=== PATIENT | male | born 1955 | race Caucasian/White ===

== ENCOUNTER 2016-11-06 15:12 | Outpatient (CLI) | payer OTHER ==
[2016-11-06 15:47] LABS: eGFR (African) > 60; eGFR (Non-African) > 60
--- NOTE | 2016-11-06 16:29 | Diagnostic Imaging Report ---
[facility] [address] [facility].[address] [address] Report Submission Date: Nov 06, 2016 4:25:42 PM ENGINE TURNER Patient Study Name: MARSHA HUNTER Date: Nov 06, 2016 4:02:56 PM ENGINE TURNER Modality Type: CT\SR Gender: M Description: CT CHEST W/ CONTRAST : 53 Institution: [facility] Physician: SAMRA GANNON CT chest with IV contrast Clinical history: Dyspnea and wheezing for 3 days, history of COPD 89 mL omnipaque 350 Radiation dose DLP 537 No evidence of aortic dissection and there is no significant size visible pulmonary embolus. No visible pericardial or pleural effusion. 3 cm hiatal hernia. Linear atelectasis in the lingular segment of the left upper lobe. No acute infiltrates or pleural effusion. No significant mass lesions. There is slight underlying emphysema. Impression: 3 cm hiatal hernia No pulmonary embolus or aortic dissection . Mild pulmonary emphysema Small linear atelectasis in the lingular segment of the left upper lobe . Electronically signed on Nov 06, 2016 4:25:42 PM ENGINE TURNER by: Jim TRUONG
--- NOTE | 2016-11-06 16:30 | Diagnostic Imaging Report ---
[facility] [address] [facility].[address] [address] Report Submission Date: Nov 06, 2016 3:46:00 PM DIETARY DIRECTOR Patient Study Name: MARSHA HUNTER Date: Nov 06, 2016 3:25:02 PM DIETARY DIRECTOR Modality Type: CR Gender: M Description: CHEST : 53 Institution: [facility] Physician: SAMRA GANNON Chest PA and lateral views Clinical history: Dyspnea and wheezing for 3 days, history of COPD Normal heart shadow and mediastinum. Clear lungs without acute infiltrates or pleural effusion. Normal bony thorax. Impression: No active pulmonary pathology Electronically signed on Nov 06, 2016 3:46:00 PM DIETARY DIRECTOR by: Jim TRUONG
== END 2016-11-06 15:14 ==
LOC: LAB 15:12
PROVIDERS: ATTEND Family Medicine
DX: R06.2 Wheezing (principal); J43.9 Emphysema, unspecified; K44.9 Diaphragmatic hernia without obstruction or gangrene
CPT/HCPCS: 36415; 71020; 71275; 80048; 85379; Q9966

== ENCOUNTER 2016-12-04 10:05 | Emergency (ER) | payer OTHER ==
--- NOTE | 2016-12-04 10:35 | ED Physician Documentation ---
Upper Respiratory Symptoms - HISTORIAN Historian: patient, spouse - HPI Chief Complaint: Cough/ Upper Respiratory Additional Information: flu like sy for one month-has copd- also w/similar- worse this am-more sob cough. denies cp but has tachycardia Duration: intermittent episodes Associated Symptoms: fever, chills, sweating. denies: sore throat, chest pain - ROS CONST/EYES: denies: weakness - PAST HX Lung Disease: asthma (padgets ds djd pneumonia BPH), COPD Surgeries/Procedures: appendectomy Allergies/Adverse Reactions: Allergies Allergy/AdvReac Type Severity Reaction Status Date / Time Sulfa (Sulfonamide AdvReac Unknown Hives Verified 12/04/16 11:00 Antibiotics) - SOCIAL HX Smoking History: quit less than 1 year Alcohol Use: none Drug Use: none - FAMILY HX Family History: no significant history - VITAL SIGNS Vital Signs: Vital Signs Temp Pulse Resp BP Pulse Ox 98.4 F 104 H 28 H 115/78 92 12/04/16 10:30 12/04/16 10:30 12/04/16 10:30 12/04/16 10:30 12/04/16 10:30 - REVIEWED ASSESSMENTS Nursing Assessment Reviewed: Yes Vitals Reviewed: Yes ED Results Lab/Radiology - Lab Results Lab Results: Lab Results 12/04/16 12/04/16 10:35 10:35 WBC 4.90 K/ul K/ul (4.00-12.00) RBC 4.49 M/ul M/ul (3.90-5.20) Hgb 13.6 g/dL g/dL (12.0-18.0) Hct 40.1 % % (37.0-53.0) MCV 89.4 fl fl (80.0-100.0) MCH 30.3 pg pg (28.0-34.0) MCHC 33.9 g/dL g/dL (30.0-36.0) RDW 13.0 % % (11.3-14.3) Plt Count 221 K/mm3 K/mm3 (130-400) Neut % (Auto) 58.4 % % (39.0-79.0) Lymph % (Auto) 25.3 % % (16.0-50.0) [place] % (Auto) 5.5 % % (0.0-11.0) Eos % (Auto) 8.4 % H % (0.0-6.8) Baso % (Auto) 0.4 (0.0-1.5) Neut # 2.8 # k/uL # k/uL (1.4-7.7) Lymph # 1.2 # k/uL # k/uL (0.6-4.0) [place] # 0.3 # k/uL # k/uL (0.0-0.9) Eos # 0.4 # k/uL # k/uL (0.0-0.6) Baso # 0.0 # k/uL # k/uL (0.0-0.5) Reactive Lymphs % 2.0 % % (0.0-5.0) Reactive Lymphs # 0.1 # k/uL # k/uL (0.0-0.8) Sodium 137 mmol/L mmol/L (136-145) Potassium 3.7 mmol/L mmol/L (3.5-5.0) Chloride 103 mmol/L mmol/L (98-110) Carbon Dioxide 30 mmol/L mmol/L (20-32) BUN 11 mg/dL mg/dL (10-26) Creatinine 1.0 mg/dL mg/dL (0.4-1.5) Est GFR ( Amer) > 60 (60 - ) Est GFR (Non-Af Amer) > 60 (60 - ) Glucose 142 mg/dL H mg/dL (70-99) Calcium 9.6 mg/dL mg/dL (8.5-10.5) Total Bilirubin 0.5 mg/dL mg/dL (0.2-1.2) AST 23 U/L U/L (0-41) ALT 24 U/L U/L (0-45) Alkaline Phosphatase 108 U/L U/L (46-116) Total Protein 7.4 g/dL g/dL (6.0-8.5) Albumin 4.2 g/dL g/dL (3.0-5.5) - Radiology Radiology Impressions: cxr = copd no apparent acute infiltrate - Orders Orders: ED Orders Category Date Time Status Place Saline Lock/IV Now Care 12/04/16 10:31 Active CHEST P.A.&LAT 2 VIEWS [RAD] Stat Exams 12/04/16 Ordered CBC/PLATELET/DIFF Routine Lab 12/04/16 10:35 Completed CMP Routine Lab 12/04/16 10:35 Completed Ipratropium/Albuterol Sulfate [Duoneb] Med 12/04/16 10:31 Discontinued 3 ml NEB NOW ONE methylPREDNISolone ACETATE [Depo-Medrol] Med 12/04/16 11:19 Once 80 mg IM NOW ONE Oxygen Daily Oxygen 12/04/16 10:45 Ordered EKG WITH COMPARISON Stat Ther 12/04/16 Ordered Upper Respiratory Symptoms - EXAM General Appearance: moderate distress EENT: eyes nml inspection Neck: normal inspection, supple Respiratory: speaks full sentences, respiratory distress, prolonged expirations , decreased air movement, wheezes, rhonchi. No: no resp. distress, breath sounds nml, respiratory failure, retractions, splinting, accessory muscle use Abdomen: non-tender CVS: reg rate & rhythm, heart sounds normal Skin: color nml, no rash, warm,dry. No: cyanosis, diaphoresis, pallor Extremities: non-tender, normal range of motion, no evidence of injury Neuro/Psych: oriented x3, neuro intact, mood/affect nml Discharge Clincal Impression: Acute exacerbation of COPD with asthma Comments: home meds f/u w/pcp Condition: Fair Disposition: 01 HOME, SELF-CARE Decision to Admit: NO Decision Time: 11:27
[2016-12-04] MEDS: IPRATROPIUM/ALBUTEROL SULFATE 3 ML AMPUL.NEB NEB ONE (10:39)
[2016-12-04 10:41] LABS: BASOPHILS % 0.4 (0.0-1.5); EOSINOPHILS % 8.4 % (0.0-6.8); LYMPHOCYTES # 1.2 # k/uL (0.6-4.0); MEAN CORPUSCULAR HEMOGLOBIN 30.3 pg (28.0-34.0); MONOCYTES # 0.3 # k/uL (0.0-0.9); MONOCYTES % 5.5 % (0.0-11.0); NEUTROPHILS # 2.8 # k/uL (1.4-7.7)
[2016-12-04 10:57] LABS: eGFR (African) > 60; eGFR (Non-African) > 60
--- NOTE | 2016-12-04 11:29 | Diagnostic Imaging Report ---
[facility] [address] [facility].[address] [address] Report Submission Date: Dec 04, 2016 11:15:01 AM ALARM INSTALLATION TECHNICIAN Patient Study Name: MARSHA HUNTER Date: Dec 04, 2016 11:01:25 AM ALARM INSTALLATION TECHNICIAN Modality Type: CR Gender: M Description: CHEST : 53 Institution: [facility] Physician: TUTU Harley DO [employer] Agent to anterior and lateral chest Clinical history: Cough Comparison: November 06, 2016 of the thumb Technique: Pa and lateral standing upright radiographs Findings: The lung mehta are hyperinflated with flattening of the hemidiaphragms. There is no mass infiltrate or pleural effusions. Thoracic spondylosis is present. Impression: Hyperinflation No acute infiltrate Electronically signed on Dec 04, 2016 11:15:01 AM ALARM INSTALLATION TECHNICIAN by: Tashi TRUONG
[2016-12-04] MEDS: methylPREDNISolone ACETATE 80 MG/ML VIAL IM ONE (11:30)
[2016-12-04 11:48] VITALS: BP 128/73
== END 2016-12-04 11:46 | disposition home or self-care (01) ==
LOC: ED 10:05
DX: J44.1 Chronic obstructive pulmonary disease with (acute) exacerbation (principal)
CPT/HCPCS: 71020; 80053; 85025; 93005; J1040; 94640; 96372; 99283; S1016

== ENCOUNTER 2017-04-10 07:34 | Inpatient (IN) | payer OTHER ==
[2017-04-10] MEDS ORDERED: IPRATROPIUM/ALBUTEROL SULFATE 3 ML AMPUL.NEB NEB ONE ×3 (07:42→12:42)
[2017-04-10] MEDS ORDERED: methylPREDNISolone SOD SUCC 125 MG/2 ML VIAL IVP ONE (07:43)
--- NOTE | 2017-04-10 07:49 | ED Physician Documentation ---
Dizziness - HISTORIAN Historian: patient - HPI Chief Complaint: Dyspnea - PAST HX Allergies/Adverse Reactions: Allergies Allergy/AdvReac Type Severity Reaction Status Date / Time Sulfa (Sulfonamide AdvReac Unknown Hives Verified 04/10/17 07:49 Antibiotics) - VITAL SIGNS Vital Signs: Vital Signs Temp Pulse Resp BP Pulse Ox 128/73 12/04/16 11:46 Discharge Referrals: Dora Acosta MD [Primary Care Provider] - 2 Days
--- NOTE | 2017-04-10 08:05 | ED Physician Documentation ---
Dyspnea - HISTORIAN Historian: patient - HPI Stated Complaint: Difficulty Breathing Chief Complaint: Dyspnea Onset: hours (last noc) Duration: continues in ED Initiating Event: denies: out of meds Severity: moderate Exacerbated By: exertion, coughing Associated Symptoms: productive cough (white phlegm). denies: chills, fever, chest pain, chest discomfort, heart racing - ROS CONST: no problems, recent illness GI/: none. denies: vomiting, nausea, diarrhea, black stools - PAST HX Lung Disease: asthma (patient's breathing problems are usually more related to asthma then COPD), COPD Cardiac Disease: none PE Risk Factors: none Surgeries/Procedures: appendectomy, other (arthroscopic surgery knee) Other History: other (allergic rhinnitis, asthma, COPD, migraine, Paget's disease) Immunizations: referred to PCP Allergies/Adverse Reactions: Allergies Allergy/AdvReac Type Severity Reaction Status Date / Time Sulfa (Sulfonamide AdvReac Unknown Hives Verified 04/10/17 07:49 Antibiotics) Home Medications: Ambulatory Orders Medication Instructions Recorded Aspirin [Adult Low Dose Aspirin EC] 81 mg PO DAILY 04/10/17 Cetirizine HCl [Zyrtec] 10 mg PO DAILY 04/10/17 predniSONE [Deltasone] 10 mg PO DAILY 04/10/17 - SOCIAL HX Smoking History: quit less than 1 year (Jul 2016) - FAMILY HX Family History: other (mother with asthma) - VITAL SIGNS Vital Signs: Vital Signs Temp Pulse Resp BP Pulse Ox 98.3 F 105 H 26 H 183/101 94 04/10/17 07:43 04/10/17 07:43 04/10/17 07:43 04/10/17 07:43 04/10/17 07:43 - REVIEWED ASSESSMENTS Nursing Assessment Reviewed: Yes Vitals Reviewed: Yes Progress - Progress Progress: 08:33 Breathing is some better. Not as tight. Still having some wheezing. SAO2 at 96% on 5 liters. 09:11 Still complaining of SOB, talks in short sentences, still wheezing quite-a-bit bilaterally. Will give another HFN treatment. 10:23 Patient is talking in sentences now. Still short of breath but is moving air much better. Have decreased oxygen to 3.5 liters and SAo2 is 94% 11:13 Patient is stable. Oxygen down to 2 liters. Still bilateral wheezing noted. Gets SOB with exertion. 12:47 Patient is resting 93% on 2 liters. Still wheezing all lobes, will give another neb treatment ED Results Lab/Radiology - Radiology Radiology Impressions: Report Submission Date: Apr 10, 2017 8:59:18 AM CDT Patient Study Name: MARSHA HUNTER Date: Apr 10, 2017 7:57:04 AM CDT Modality Type: CR Gender: M Description: CHEST : 53 Institution: [facility] Physician: BABS RICKS - SARAN Portable chest History: Dyspnea and COPD. Findings: The lungs are clear and well expanded. No pleural effusions are observed. Heart size is normal. Osseous structures are unremarkable. A calcified left lung granuloma is noted. Impression: No acute abnormality. - Orders Orders: ED Orders Category Date Time Status Place IV Lock 1T Care 04/10/17 07:44 Active CHEST 1 VIEW [RAD] Routine Exams 04/10/17 Ordered CBC/PLATELET/DIFF Routine Lab 04/10/17 Ordered CMP Routine Lab 04/10/17 Ordered D DIMER Routine Lab 04/10/17 Ordered Ipratropium/Albuterol Sulfate [Duoneb] Med 04/10/17 07:42 Discontinued 3 ml NEB NOW ONE methylPREDNISolone SOD SUCC [Solu-MEDROL] Med 04/10/17 07:43 Discontinued 125 mg IVP NOW ONE Oxygen Daily Oxygen 04/10/17 07:45 Ordered Dyspnea Physical Exam - EXAM General Appearance: alert EENT: pharynx normal, no signs of dehydration. No: pharyngeal erythema Neck: nml inspection Respiratory: speaks full sentences (short), respiratory distress, prolonged expirations, decreased air movement, wheezes (expiratory bilateral). No: retractions, splinting, rales, rhonchi CVS: reg. rate & rhythm, no murmur, no gallop, no friction rub, pulses full, pulses equal Abdomen: non-tender, no organomegaly, no distention, no ascites Skin: color nml, no rash, diaphoresis (mild). No: cyanosis Neuro/Psych: oriented x3, CN's nml as tested, motor nml, mood/affect nml Discharge Clincal Impression: Acute asthma exacerbation Home Medications: Ambulatory Orders Aspirin [Adult Low Dose Aspirin EC] 81 mg PO DAILY 06/13/17 Cetirizine HCl [Zyrtec] 10 mg PO DAILY 04/10/17 predniSONE [Deltasone] 10 mg PO DAILY 04/10/17 Condition: Good Disposition: ADMITTED INPATIENT Decision to Admit: [id number] Date of Decison to Admit: 04/10/17 Decision Time: 12:00
[2017-04-10 08:19] LABS: BASOPHILS % 0.8 (0.0-1.5); EOSINOPHILS % 9.8 % (0.0-6.8); MEAN CORPUSCULAR HEMOGLOBIN 29.5 pg (28.0-34.0); MEAN CORPUSCULAR VOLUME 87.9 fl (80.0-100.0); MONOCYTES % 5.3 % (0.0-11.0); NEUTROPHILS # 3.4 # k/uL (1.4-7.7)
[2017-04-10 08:37] LABS: eGFR (African) > 60; eGFR (Non-African) > 60
--- NOTE | 2017-04-10 14:31 | Diagnostic Imaging Report ---
BABS RICKS [facility] [address] [facility] [address] [address] Report Submission Date: Apr 10, 2017 8:59:18 AM CDT Patient Study Name: MARSHA HUNTER Date: Apr 10, 2017 7:57:04 AM CDT Modality Type: CR Gender: M Description: CHEST : 53 Institution: [facility] Physician: BABS RICKS Portable chest History: Dyspnea and COPD. Findings: The lungs are clear and well expanded. No pleural effusions are observed. Heart size is normal. Osseous structures are unremarkable. A calcified left lung granuloma is noted. Impression: No acute abnormality. Electronically signed on Apr 10, 2017 8:59:18 AM CDT by: Dl TRUONG
[2017-04-10] MEDS: ENOXAPARIN SODIUM 30 MG/0.3 ML DISP.SYRIN SQ SCH (17:03)
[2017-04-10] MEDS: IPRATROPIUM/ALBUTEROL SULFATE 3 ML AMPUL.NEB NEB SCH ×2 (17:52→20:56)
[2017-04-10 19:49] VITALS: BMI 30.5
[2017-04-10] MEDS: DOXYCYCLINE MONOHYDRATE 100 MG CAPSULE PO SCH (20:34)
[2017-04-10] MEDS: methylPREDNISolone SOD SUCC 40 MG/ML VIAL IVP SCH (20:34)
[2017-04-10] MEDS: SALINE FLUSH 10 ML DISP.SYRIN IV SCH (20:56)
[2017-04-10] MEDS ORDERED: methylPREDNISolone SOD SUCC 40 MG/ML VIAL IVP SCH (21:00)
[2017-04-11] MEDS: IPRATROPIUM/ALBUTEROL SULFATE 3 ML AMPUL.NEB NEB SCH ×6 (00:59→20:45)
[2017-04-11] MEDS: methylPREDNISolone SOD SUCC 40 MG/ML VIAL IVP SCH ×3 (06:00→19:48)
[2017-04-11 06:30] LABS: MEAN CORPUSCULAR HEMOGLOBIN 29.5 pg (28.0-34.0); MEAN CORPUSCULAR VOLUME 87.9 fl (80.0-100.0)
[2017-04-11 07:12] LABS: eGFR (African) > 60; eGFR (Non-African) > 60
[2017-04-11 07:23] LABS: MONOCYTES % 2 % (0-11); SEGMENTED NEUTROPHILS % 87 % (39-79)
--- NOTE | 2017-04-11 08:11 | History and Physical Report ---
History of Present Illnes - History of Present Illness Reason for Visit: "Can't breathe" History of Present Illness: Patient with asthma and maybe some COPD component presented to the ER after 2 days of progressively worsening dyspnea. Has had a cough for 3 weeks. Started feeling more SOB so using duonebs every 4-6 hours. Today woke up unable to get his breath despite the nebulizers. Presented to the ER where he was found to be moving little air with SAT 88% on 4 liters and in respiratory distress. Finally after 125 mg of IV solumedrol and several breathing treatments, patient began moving more air and feeling better. Able to wean O2 down to 2 liters with 92% SAT. [facility]. [facility] and requested he be admitted here for treatment with possible transfer there in the morning. 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: Migraine Musculoskeletal: Other (Paget's disease) - Past Surgical History Past Surgical History: Appendectomy, Other (knee arthroscopy) - Past Social History Smoke: Quit (9 months ago) Occupation: Works at [email or web address] Alcohol: None Drugs: None Lives: With Family ( - Elidia) - Health Maintenance Health Maintenance: Tetanus, Colonoscopy Influenza Vaccine: Current for this Influenza Season Pneumonia Vaccine: Yes Resuscitation Status: Resusciation Status Resuscitation Status Full Code Review of Systems - Review of Systems Constitutional: negative: Fever, Sweats, Weakness Eyes: negative: pain ENT: Nose Discharge. negative: Ear Discharge Respiratory: Cough, Shortness of Breath, SOB with Excertion, Wheezing Cardiovascular: negative: Chest Pain, Palpitations Gastrointestinal: negative: Nausea, Vomiting, Abdominal Pain, Diarrhea Genitourinary: negative: Dysuria Musculoskeletal: negative: Neck Pain Skin: negative: Rash Neurological: negative: Weakness - Medications/Allergies Allergies/Adverse Reactions: Allergies Allergy/AdvReac Type Severity Reaction Status Date / Time Sulfa (Sulfonamide AdvReac Unknown Hives Verified 04/10/17 07:49 Antibiotics) Home Medications: Home Medications Aspirin [Adult Low Dose Aspirin EC] 81 mg PO DAILY 04/10/17 Cetirizine HCl [Zyrtec] 10 mg PO DAILY 04/10/17 predniSONE [Deltasone] 10 mg PO DAILY 04/10/17 Current Inpatient Medications: Current Inpatient Medications Albuterol/Ipratropium (Duoneb) 3 ml NEB Q4 [facility] Aspirin (Ecotrin) 81 mg PO DAILY [facility] Doxycycline Monohydrate (Vibramycin) 100 mg PO BID [facility] Stop: 04/20/17 20:59 Enoxaparin Sodium (Lovenox) 30 mg SQ QD [facility] Stop: 04/23/17 14:01 Finasteride (Proscar) 5 mg PO DAILY [facility] Methylprednisolone Sodium Succinate (Solu-Medrol) 80 mg IVP Q12 [facility] Sodium Chloride (Normal Saline Flush) 3 ml IV BID [facility] Tamsulosin HCl (Flomax) 0.4 mg PO DAILY [facility] Exam - Exam Vital Signs: Vital Signs (72 hours) 04/10/17 13:37 Pulse Rate [ 101 H Pulse ox] Respiratory 18 Rate Blood Pressure 130/81 [Right Arm] O2 Sat by Pulse 96 Oximetry General: Alert, Oriented to Person, Oriented to Place, Oriented to Time, Cooperative, Mild distress HEENT: Atraumatic, PERRLA, EOMI, Mouth Mucous membr. moist/[place] Neck: Normal Range of Motion Lungs: Wheezes, Decreased Air Movement Cardiovascular: Regular rate Abdomen: Normal bowel sounds Integumentary: Normal Extremities: No edema Neurological: Normal gait, Normal speech, Strength Equal Bilat, Normal tone Psych/Mental Status: Mental status NL, Mood NL, Appropriate Affect, Intact Judgment Assessment/Plan - Assessment/Plan (1) Bronchitis Status: Acute Current Visit: Yes Plan: CXR negative, WBC normal, Afebrile. Will treat with doxycycline to cover atypical bugs. (2) Hypoxia Status: Acute Current Visit: Yes (3) Acute asthma exacerbation Status: Acute Current Visit: Yes Plan: Will admit for IV steroids, duonebs q 4hr, and O2. Lovenox for DVT prevention. Try to transfer to [place] when they have a bed. VTE Assessment - RISK FACTOR SCORE VTE RISK FACTOR SCORES: AGE OVER 60 YEARS, ACUTE RESPIRATORY FAILURE/SEVERE COPD , ANTICIPATED BED CONFINEMENT OR IMMOBILIZATION > 24 HOURS - RISK VTE HIGH RISK: SCORE OF 3-4 (RISK PROXIMAL DVT 4-8%) PROPHYLAXIS NEEDED
[2017-04-11] MEDS: SALINE FLUSH 10 ML DISP.SYRIN IV SCH ×2 (08:18→19:52)
[2017-04-11] MEDS: TAMSULOSIN HCL 0.4 MG CAP.ER.24H PO SCH (08:18)
[2017-04-11] MEDS: ASPIRIN EC 81 MG TABLET.DR PO SCH (08:18)
[2017-04-11] MEDS: FINASTERIDE 5 MG TABLET PO SCH (08:19)
[2017-04-11] MEDS: DOXYCYCLINE MONOHYDRATE 100 MG CAPSULE PO SCH ×2 (08:19→19:48)
[2017-04-11] MEDS: ENOXAPARIN SODIUM 30 MG/0.3 ML DISP.SYRIN SQ SCH (14:21)
--- NOTE | 2017-04-11 15:36 | Inpatient Progress Note ---
Subjective - Required Recertification Statement I anticipate X number of days because-include discharge plan: 4 - Review of Systems Subjective: Patient feeling some better today but still working at breathing. Objective - Exam Vitals and I&O: Vital Signs Temp 98.2 F 04/11/17 13:00 Pulse 93 H 04/11/17 13:00 Resp 18 04/11/17 13:00 BP 141/71 04/11/17 13:00 Pulse Ox 94 04/11/17 09:00 Intake & Output 04/10/17 04/11/17 04/11/17 23:59 11:59 23:59 Intake Total 450 480 360 Output Total 800 Balance 450 -320 360 Weight 107.955 kg 107.955 kg Intake: Oral 450 480 360 Output: Urine 800 Other: Voiding Method Toilet Toilet General: Alert, Oriented to Person, Oriented to Place, Oriented to Time, Cooperative, Mild distress HEENT: Atraumatic, PERRLA, EOMI, Mouth Mucous membr. moist/[place] Lungs: Wheezes, Rales Cardiovascular: Regular rate - Results Results: Laboratory Results WBC 10.92 K/ul (4.00-12.00) 04/11/17 06:20 RBC 4.85 M/ul (3.90-5.20) 04/11/17 06:20 Hgb 14.3 g/dL (12.0-18.0) 04/11/17 06:20 Hct 42.6 % (37.0-53.0) 04/11/17 06:20 MCV 87.9 fl (80.0-100.0) 04/11/17 06:20 MCH 29.5 pg (28.0-34.0) 04/11/17 06:20 MCHC 33.6 g/dL (30.0-36.0) 04/11/17 06:20 RDW 12.8 % (11.3-14.3) 04/11/17 06:20 Plt Count 217 K/mm3 (130-400) 04/11/17 06:20 Neut % (Auto) 60.5 % (39.0-79.0) 04/10/17 08:15 Lymph % (Auto) 21.1 % (16.0-50.0) 04/10/17 08:15 [place] % (Auto) 5.3 % (0.0-11.0) 04/10/17 08:15 Eos % (Auto) 9.8 % (0.0-6.8) H 04/10/17 08:15 Baso % (Auto) 0.8 (0.0-1.5) 04/10/17 08:15 Neut # 3.4 # k/uL (1.4-7.7) 04/10/17 08:15 Lymph # 1.2 # k/uL (0.6-4.0) 04/10/17 08:15 [place] # 0.3 # k/uL (0.0-0.9) 04/10/17 08:15 Eos # 0.6 # k/uL (0.0-0.6) 04/10/17 08:15 Baso # 0.0 # k/uL (0.0-0.5) 04/10/17 08:15 Seg Neutrophils % 87 % (39-79) H 04/11/17 06:20 Band Neutrophils % 7 % (0-12) 04/11/17 06:20 Lymphocytes % 4 % (16-50) L 04/11/17 06:20 Reactive Lymphs % 2.4 % (0.0-5.0) 04/10/17 08:15 Monocytes % 2 % (0-11) 04/11/17 06:20 Reactive Lymphs # 0.1 # k/uL (0.0-0.8) 04/10/17 08:15 Plt Morphology Comment Normal (NORMAL) 04/11/17 06:20 RBC Morph Comment Normal (NORMAL) 04/11/17 06:20 D-Dimer 443 ng/mL (6.0-682) 04/10/17 08:15 Sodium 133 mmol/L (136-145) L 04/11/17 06:21 Potassium 4.2 mmol/L (3.5-5.0) 04/11/17 06:21 Chloride 93 mmol/L (98-110) L 04/11/17 06:21 Carbon Dioxide 26 mmol/L (20-32) 04/11/17 06:21 BUN 21 mg/dL (10-26) 04/11/17 06:21 Creatinine 1.0 mg/dL (0.4-1.5) 04/11/17 06:21 Estimated Creat Clear 116 04/11/17 06:21 Est GFR ( Amer) > 60 (60-) 04/11/17 06:21 Est GFR (Non-Af Amer) > 60 (60-) 04/11/17 06:21 Glucose 229 mg/dL (70-99) H 04/11/17 06:21 Calcium 9.7 mg/dL (8.5-10.5) 04/11/17 06:21 Total Bilirubin 0.5 mg/dL (0.2-1.2) 04/11/17 06:21 AST 20 U/L (0-41) 04/11/17 06:21 ALT 19 U/L (0-45) 04/11/17 06:21 Alkaline Phosphatase 118 U/L (46-116) H 04/11/17 06:21 Total Protein 7.3 g/dL (6.0-8.5) 04/11/17 06:21 Albumin 4.3 g/dL (3.0-5.5) 04/11/17 06:21 Assessment/Plan - Assessment/Plan (1) Bronchitis Status: Acute Current Visit: Yes (2) Hypoxia Status: Acute Current Visit: Yes (3) Acute asthma exacerbation Status: Acute Current Visit: Yes Plan: Patient doing better. Cont IV steroids and duonebs. Wean O2 when able. [facility] does not have a bed today. They asked we call back tomorrow.
[2017-04-12] MEDS: IPRATROPIUM/ALBUTEROL SULFATE 3 ML AMPUL.NEB NEB SCH ×6 (02:13→21:31)
[2017-04-12] MEDS: methylPREDNISolone SOD SUCC 40 MG/ML VIAL IVP SCH ×3 (05:59→21:24)
[2017-04-12] MEDS: DOXYCYCLINE MONOHYDRATE 100 MG CAPSULE PO SCH ×2 (08:37→21:26)
[2017-04-12] MEDS: ASPIRIN EC 81 MG TABLET.DR PO SCH (08:38)
[2017-04-12] MEDS: FINASTERIDE 5 MG TABLET PO SCH (08:38)
[2017-04-12] MEDS: ENOXAPARIN SODIUM 40 MG/0.4 ML DISP.SYRIN SQ SCH (08:53)
[2017-04-12] MEDS: TAMSULOSIN HCL 0.4 MG CAP.ER.24H PO SCH (08:53)
[2017-04-12] MEDS: SALINE FLUSH 10 ML DISP.SYRIN IV SCH ×2 (08:53→21:25)
[2017-04-12] MEDS: INSULIN LISPRO 100 UNIT/ML 3ML VIAL SQ SCH ×3 (11:49→21:40)
[2017-04-13] MEDS: IPRATROPIUM/ALBUTEROL SULFATE 3 ML AMPUL.NEB NEB SCH ×2 (01:45→05:55)
[2017-04-13] MEDS: methylPREDNISolone SOD SUCC 40 MG/ML VIAL IVP SCH (05:49)
[2017-04-13] MEDS: SALINE FLUSH 10 ML DISP.SYRIN IV SCH ×2 (05:56→08:08)
[2017-04-13 07:10] LABS: eGFR (African) > 60; eGFR (Non-African) > 60
[2017-04-13] MEDS: INSULIN LISPRO 100 UNIT/ML 3ML VIAL SQ SCH (08:04)
[2017-04-13] MEDS: DOXYCYCLINE MONOHYDRATE 100 MG CAPSULE PO SCH (08:07)
[2017-04-13] MEDS: TAMSULOSIN HCL 0.4 MG CAP.ER.24H PO SCH (08:07)
[2017-04-13] MEDS: FINASTERIDE 5 MG TABLET PO SCH (08:07)
[2017-04-13] MEDS: ENOXAPARIN SODIUM 40 MG/0.4 ML DISP.SYRIN SQ SCH (08:07)
[2017-04-13] MEDS: ASPIRIN EC 81 MG TABLET.DR PO SCH (08:08)
[2017-04-13 09:43] VITALS: BP 139/64
== END 2017-04-13 09:35 | disposition home or self-care (01) | DRG 202 ==
LOC: ED 07:34 → SOUTH 13:30
PROVIDERS: ADMIT Family Medicine; ATTEND Family Medicine
DX: J40 Bronchitis, not specified as acute or chronic (principal); J45.901 Unspecified asthma with (acute) exacerbation; R09.02 Hypoxemia
CPT/HCPCS: 71010; 80053; 85025; 85379; 99223; 99232; 99238; 99283; 99284; J1650; J1815; J2920; J2930; J1030; S1016

== ENCOUNTER 2017-10-15 05:10 | Emergency (ER) | payer OTHER ==
[2017-10-15] MEDS ORDERED: IPRATROPIUM/ALBUTEROL SULFATE 3 ML AMPUL.NEB NEB ONE ×3 (05:12→05:56)
[2017-10-15] MEDS ORDERED: DEXAMETHASONE SOD PHOS 4 MG/ML VIAL ONE (05:12)
--- NOTE | 2017-10-15 05:36 | ED Physician Documentation ---
Asthma - HISTORIAN Historian: patient, spouse - HPI Stated Complaint: soa Chief Complaint: Asthma Additional Information: x 12 hrs. he has several a year, thinks it is wet weather change. sats at 91- 925 RA. wheeze, white sputum. uses duoneb at home. Onset: hours Duration: continues in ED Initiating Event: environmental allergy Associated Symptoms:: trouble breathing, shortness of breath Current Asthma Therapy: inhaled nebulizer, inhaled MDI Further Comments: no - ROS CONST: no problems EYES/ENT: denies: eye redness, eye itching, sore throat, runny nose CVS: denies: heart racing GI/: none MS/SKIN/LYMPH: denies: ankle swelling, leg pain NEURO/PSYCH: denies: headache, dizziness - PAST HX Asthma: frequent attacks Lung Disease: asthma DVT/PE Risk Factors: none Other History: diabetes Type 2. denies: cardiac disease Surgeries/Procedures: none Immunizations: influenza, UTD Allergies/Adverse Reactions: Allergies Allergy/AdvReac Type Severity Reaction Status Date / Time Sulfa (Sulfonamide AdvReac Unknown Hives Verified 10/15/17 05:44 Antibiotics) Home Medications: Ambulatory Orders Medication Instructions Recorded Aspirin [Adult Low Dose Aspirin EC] 81 mg PO DAILY 04/10/17 Budesonide/Formoterol Fumarate 2 puff IH BID 04/12/17 [Symbicort 160-4.5 Mcg Inhaler] Cetirizine HCl [Zyrtec] 10 mg PO DAILY 04/12/17 Meloxicam [Mobic] 15 mg PO DAILY 04/12/17 Cholecalciferol [Vitamin D-3] 1,000 unit PO DAILY 10/15/17 Fluticasone Propionate [Flovent 1 puff IH DAILY 10/15/17 Diskus] Glucosamine/MSM/Chondroit Sulf 1 each PO DAILY 10/15/17 [Djphjtcvdko-Smdvepkdmlz-IHN Tb] Ipratropium Amity 0.2 mg IH DIRECTED 10/15/17 Metformin HCl [Glucophage] [place] [id number] 10/15/17 Montelukast Sodium [Singulair] 10 mg PO HS 10/15/17 Multivitamin [Tab-A-Jesus] 1 each PO DAILY 10/15/17 - SOCIAL HX Smoking History: non-smoker Alcohol Use: none Drug Use: none - FAMILY HX Family History: denies: emphysema - VITAL SIGNS Vital Signs: Vital Signs Temp Pulse Resp BP Pulse Ox 139/64 04/13/17 07:25 - REVIEWED ASSESSMENTS Nursing Assessment Reviewed: Yes Vitals Reviewed: Yes Progress - Progress Progress: improved air flow, less wheeze, O2 sat improved. much improved after second duoneb O2 sat at 93-95 on RA feels he can go home now. ED Results Lab/Radiology - Orders Orders: ED Orders Category Date Time Status Dexamethasone Sod Phosphate [Decadron] Med 10/15/17 05:12 Discontinued 4 mg .ROUTE .STK-MED ONE Ipratropium/Albuterol Sulfate [Duoneb] Med 10/15/17 05:12 Discontinued 3 ml NEB .STK-MED ONE Asthma Physical Exam - EXAM General Appearance: no acute distress, alert EENT: eye inspection normal, ENT inspection normal, no signs of dehydration Neck: nml inspection Respiratory: no resp. distress, no pain on inspiration, speaks full sentences, decreased air movement, wheezes CVS: reg rate & rhythm, heart sounds normal, equal pulses, no murmur Abdomen: non-tender Skin: color nml, no rash Extremities: non-tender Neuro/Psych: oriented x3, neuro intact, mood/affect nml Discharge Clincal Impression: Hypoxia, Bronchitis Acute asthma exacerbation Qualifiers: Asthma severity: mild Asthma persistence: unspecified Qualified Code(s): J45.901 - Unspecified asthma with (acute) exacerbation Referrals: Dora Acosta MD [Primary Care Provider] - 2 Days Condition: Stable Disposition: 01 HOME, SELF-CARE Decision to Admit: NO Date of Decison to Admit: 10/15/17 Decision Time: 06:46
[2017-10-15] MEDS ORDERED: DEXAMETHASONE SOD PHOS 4 MG/ML VIAL NEB ONE ×2 (05:46→05:57)
[2017-10-15] MEDS ORDERED: methylPREDNISolone SOD SUCC 125 MG/2 ML VIAL IM ONE (05:47)
[2017-10-15 07:01] VITALS: BP 137/80
== END 2017-10-15 06:57 | disposition home or self-care (01) ==
LOC: ED 05:10
DX: R09.02 Hypoxemia (principal); J40 Bronchitis, not specified as acute or chronic; J45.901 Unspecified asthma with (acute) exacerbation
CPT/HCPCS: J1100; J2930; 96372; 99283

== ENCOUNTER 2018-03-31 06:12 | Emergency (ER) | payer OTHER ==
[2018-03-31] MEDS ORDERED: IPRATROPIUM/ALBUTEROL SULFATE 3 ML AMPUL.NEB NEB ONE ×3 (06:25→07:27)
[2018-03-31] MEDS ORDERED: methylPREDNISolone ACETATE 80 MG/ML VIAL IM PRN (06:50)
--- NOTE | 2018-03-31 06:58 | ED Physician Documentation ---
Dyspnea - HISTORIAN Historian: patient, spouse - HPI Stated Complaint: SOA Chief Complaint: Dyspnea Additional Information: GOOD DAY YESTERDAY AWOKE 0500 VERY SOB FELT LIKe "clog" in throat. long hx copd asthma. recently quite asymtomatic. took 2 breathing tx at home min help moving very now quite coarse wheezing little air when came in but spo2 = 95 given 2 tx duo neb. pt alert looks better now. Onset: hours (0500) Duration: continues in ED, better Initiating Event: exercise (good day yest). denies: out of meds, sports Severity: moderate Exacerbated By: nothing, exertion Associated Symptoms: chest discomfort. denies: chills, fever, bloody cough, heart racing, anxiety - ROS CONST: no problems. denies: recent illness EYES/ENT: none, problems with vision NEURO/PSYCH: denies: headache MS/SKIN/LYMPH: none. denies: neck pain, muscle aches - PAST HX Lung Disease: asthma, COPD, other (diabetes) Surgeries/Procedures: appendectomy (knee neck fusion sinus surg) - SOCIAL HX Smoking History: non-smoker (since aug 13) Alcohol Use: none Drug Use: none - FAMILY HX Family History: no significant history - VITAL SIGNS Vital Signs: Vital Signs Temp Pulse Resp BP Pulse Ox 20 117/56 95 03/31/18 06:12 03/31/18 06:12 03/31/18 06:12 - REVIEWED ASSESSMENTS Nursing Assessment Reviewed: Yes Vitals Reviewed: Yes <Chris Bradshaw - Last Filed: 03/31/18 06:52> - VITAL SIGNS Vital Signs: Vital Signs Temp Pulse Resp BP Pulse Ox 71 14 118/66 99 03/31/18 08:01 03/31/18 08:01 03/31/18 08:01 03/31/18 08:01 <Juan Bentley - Last Filed: 03/31/18 18:39> - PAST HX Allergies/Adverse Reactions: Allergies Allergy/AdvReac Type Severity Reaction Status Date / Time Sulfa (Sulfonamide AdvReac Unknown Hives Verified 10/15/17 05:44 Antibiotics) Home Medications: Ambulatory Orders Medication Instructions Recorded Aspirin [Adult Low Dose Aspirin EC] 81 mg PO DAILY 04/10/17 Meloxicam [Mobic] 15 mg PO DAILY 04/12/17 Cholecalciferol [Vitamin D-3] 1,000 unit PO DAILY 10/15/17 Glucosamine/MSM/Chondroit Sulf 1 each PO DAILY 10/15/17 [Odjqkxbpsyi-[place]ubf[place]-NIR Tb] Ipratropium [place] 0.2 mg IH DIRECTED 10/15/17 Metformin HCl [Glucophage] [place] [address] 10/15/17 Montelukast Sodium [Singulair] 10 mg PO HS 10/15/17 Multivitamin [Tab-A-Jesus] 1 each PO DAILY 10/15/17 Fluticasone Propionate [Flovent 50 mcg PO DAILY 03/31/18 Diskus] Glipizide 2.5 mg PO DAILY 03/31/18 Ipratropium/Albuterol Sulfate 20 mcg PO PRN 03/31/18 [Combivent Respimat] Progress - Progress Progress: tnsf to DR BENTLEY 0710 <Chris Bradshaw - Last Filed: 03/31/18 06:52> - Progress Progress: CXR: The lungs are mildly hyperinflated without infiltrate or pleural effusion. Heart size and pulmonary vascularity are normal. Cervical fusion hardware is noted. Impression: Mild hyperinflation. Duoneb HFN (#3) much improved Rx Prednisone 50 mg, 1 po qd x 4 days, start on 04/01/18 - EKG/XRAY/CT EKG: NSR (HR=80; normal EKG) <Juan Bentley - Last Filed: 03/31/18 18:39> ED Results Lab/Radiology - Orders Orders: ED Orders Category Date Time Status Place IV Lock 1T Care 03/31/18 06:10 Active CHEST 2VIEW [RAD] Stat Exams 03/31/18 Ordered CHEST 2VIEW [RAD] Stat Exams 03/31/18 Ordered CBC/PLATELET/DIFF Routine Lab 03/31/18 Ordered CMP Routine Lab 03/31/18 Ordered Ipratropium/Albuterol Sulfate [Duoneb] Med 03/31/18 06:25 Discontinued 3 ml NEB NOW ONE methylPREDNISolone ACETATE [Depo-Medrol] Med 03/31/18 06:50 Ordered 80 mg IM NOW PRN EKG WITH COMPARISON Stat Ther 03/31/18 Ordered <Chris Bradshaw - Last Filed: 03/31/18 06:52> - Lab Results Lab Results: Lab Results 03/31/18 03/31/18 06:55 06:55 WBC 5.20 K/ul K/ul (4.00-12.00) RBC 4.93 M/ul M/ul (3.90-5.20) Hgb 14.4 g/dL g/dL (12.0-18.0) Hct 42.5 % % (37.0-53.0) MCV 86.2 fl fl (80.0-100.0) MCH 29.3 pg pg (28.0-34.0) MCHC 34.0 g/dL g/dL (30.0-36.0) RDW 12.7 % % (11.3-14.3) Plt Count 226 K/mm3 K/mm3 (130-400) Neut % (Auto) 61.4 % % (39.0-79.0) Lymph % (Auto) 24.1 % % (16.0-50.0) [place] % (Auto) 5.5 % % (0.0-11.0) Eos % (Auto) 6.1 % % (0.0-6.8) Baso % (Auto) 0.5 (0.0-1.5) Neut # (Auto) 3.2 # k/uL # k/uL (1.4-7.7) Lymph # (Auto) 1.2 # k/uL # k/uL (0.6-4.0) [place] # (Auto) 0.3 # k/uL # k/uL (0.0-0.9) Eos # (Auto) 0.3 # k/uL # k/uL (0.0-0.6) Baso # (Auto) 0.0 # k/uL # k/uL (0.0-0.5) Reactive Lymphs % 2.2 % % (0.0-5.0) Reactive Lymphs # 0.1 # k/uL # k/uL (0.0-0.8) Sodium 140 mmol/L mmol/L (136-145) Potassium 4.0 mmol/L mmol/L (3.5-5.1) Chloride 102 mmol/L mmol/L (98-107) Carbon Dioxide 28 mmol/L mmol/L (22-30) BUN 17 mg/dL mg/dL (9-20) Creatinine 1.00 mg/dL mg/dL (0.66-1.25) Estimated Creat Clear 111 Est GFR ( Amer) > 60 (60 - ) Est GFR (Non-Af Amer) > 60 (60 - ) Glucose 197 mg/dL H mg/dL (74-106) Calcium 9.2 mg/dL mg/dL (8.4-10.2) Total Bilirubin < 0.1 mg/dL L mg/dL (0.2-1.3) AST 31 U/L U/L (15-46) ALT 40 U/L U/L (13-69) Alkaline Phosphatase 134 U/L H U/L (38-126) Total Protein 7.1 g/dL g/dL (6.3-8.2) Albumin 4.1 g/dL g/dL (3.5-5.0) - Orders Orders: ED Orders Category Date Time Status Place IV Lock 1T Care 03/31/18 06:10 Active CHEST 2VIEW [RAD] Stat Exams 03/31/18 Completed CBC/PLATELET/DIFF Routine Lab 03/31/18 06:55 Completed CMP Routine Lab 03/31/18 06:55 Completed Ipratropium/Albuterol Sulfate [Duoneb] Med 03/31/18 06:25 Discontinued 3 ml NEB NOW ONE Ipratropium/Albuterol Sulfate [Duoneb] Med 03/31/18 07:06 Discontinued 3 ml NEB NOW ONE Ipratropium/Albuterol Sulfate [Duoneb] Med 03/31/18 07:27 Discontinued 3 ml NEB NOW ONE methylPREDNISolone ACETATE [Depo-Medrol] Med 03/31/18 07:06 Discontinued 80 mg IM .STK-MED ONE methylPREDNISolone ACETATE [Depo-Medrol] Med 03/31/18 06:50 Discontinued 80 mg IM NOW PRN EKG WITH COMPARISON Stat Ther 03/31/18 Ordered <Juan Bentley Last Filed: 03/31/18 18:39> Dyspnea Physical Exam - EXAM General Appearance: moderate distress, anxious (slight moving very little air--- better after 2 tx but still very coarse rhonci wheezing) EENT: eye inspection normal Neck: nml inspection Respiratory: prolonged expirations, accessory muscle use, decreased air movement. No: breath sounds nml, speaks full sentences CVS: reg. rate & rhythm, no murmur Abdomen: non-tender, no distention Skin: color nml, no rash. No: cyanosis, diaphoresis, pallor Extremities: non-tender, normal range of motion, no edema Neuro/Psych: oriented x3, motor nml, sensation nml, mood/affect nml <Chris Bradshaw - Last Filed: 03/31/18 06:52> Discharge <Chris Bradshaw - Last Filed: 03/31/18 06:52> Decision to Admit: NO Decision Time: 08:00 <Juan Bentley - Last Filed: 03/31/18 18:39> Clincal Impression: COPD exacerbation Referrals: Dora Acosta MD [Primary Care Provider] - Condition: Stable Disposition: 01 HOME, SELF-CARE
[2018-03-31 07:01] LABS: BASOPHILS % 0.5 (0.0-1.5); EOSINOPHILS % 6.1 % (0.0-6.8); MEAN CORPUSCULAR HEMOGLOBIN 29.3 pg (28.0-34.0); MEAN CORPUSCULAR VOLUME 86.2 fl (80.0-100.0); MONOCYTES % 5.5 % (0.0-11.0); NEUTROPHILS # 3.2 # k/uL (1.4-7.7)
[2018-03-31] MEDS ORDERED: methylPREDNISolone ACETATE 80 MG/ML VIAL IM ONE (07:06)
[2018-03-31 07:12] LABS: eGFR (African) > 60; eGFR (Non-African) > 60
--- NOTE | 2018-03-31 07:21 | Diagnostic Imaging Report ---
ANGE CAM [facility] [address] [facility] [address] [address] Report Submission Date: Mar 31, 2018 7:09:34 AM CDT Patient Study Name: MARSHA HUNTER Date: Mar 31, 2018 6:45:04 AM CDT Modality Type: DX Gender: M Description: CHEST : 53 Institution: [facility] Physician: ANGE CAM Chest 2 views History: Difficulty breathing Findings: The lungs are mildly hyperinflated without infiltrate or pleural effusion. Heart size and pulmonary vascularity are normal. Cervical fusion hardware is noted. Impression: Mild hyperinflation. Electronically signed on Mar 31, 2018 7:09:34 AM CDT by: Dl TRUONG
[2018-03-31 08:29] VITALS: BP 118/66
== END 2018-03-31 08:01 | disposition home or self-care (01) ==
LOC: ED 06:12
DX: J44.1 Chronic obstructive pulmonary disease with (acute) exacerbation (principal)
CPT/HCPCS: 71046; 80053; 85025; 94640; 96372; 99285; J1040; S1016

== ENCOUNTER 2018-07-05 03:59 | Emergency (ER) | payer OTHER ==
[2018-07-05] MEDS ORDERED: IPRATROPIUM/ALBUTEROL SULFATE 3 ML AMPUL.NEB NEB ONE (04:04)
[2018-07-05 04:36] LABS: BASOPHILS % 0.5 (0.0-1.5); MEAN CORPUSCULAR HEMOGLOBIN 29.4 pg (28.0-34.0); MEAN CORPUSCULAR VOLUME 85.3 fl (80.0-100.0); MONOCYTES % 5.7 % (0.0-11.0); NEUTROPHILS # 3.5 # k/uL (1.4-7.7)
[2018-07-05 04:54] LABS: eGFR (Non-African) > 60
[2018-07-05] MEDS ORDERED: methylPREDNISolone SOD SUCC 125 MG/2 ML VIAL IVP ONE (04:54)
--- NOTE | 2018-07-05 05:12 | Diagnostic Imaging Report ---
JUAN DIANE [facility] [address] [facility] [address] [place], [place]. [address] Report Submission Date: Jul 05, 2018 5:09:38 AM CDT Patient Study Name: MARSHA HUNTER Date: Jul 05, 2018 4:33:56 AM CDT Modality Type: DX Gender: M Description: CHEST : 53 Institution: [facility] Physician: JUAN DIANE Chest two views History: Acute shortness of breath. History of COPD Findings: Cervical fusion hardware is partially visualized. The lungs are mildly hyperinflated without pneumonia, pleural effusion, or pneumothorax. Heart size and pulmonary vascularity are normal. Impression: Mild hyperinflation. Electronically signed on Jul 05, 2018 5:09:38 AM CDT by: Dl TRUONG
[2018-07-05] MEDS ORDERED: BUDESONIDE 0.5MG/2ML AMPUL.NEB NEB ONE (05:13)
--- NOTE | 2018-07-05 05:17 | ED Physician Documentation ---
Dyspnea - HPI Stated Complaint: Difficulty breathing Chief Complaint: Dyspnea Onset: days ago (3) Duration: continues in ED Initiating Event: other (he was told to hold his singular and claitin due to possible allergy testing on 07.08.2018) Severity: moderate Exacerbated By: change in position, other (movement ) Associated Symptoms: light-headedness. denies: chest pain, chest discomfort, bloody cough, productive cough, heart racing, leg pain, calf pain, dizziness, anxiety, hands tingling, face tingling, muscle spasms Further Comments: yes (He reports 3 days ago he started to fell "wet" and states then progressively more short on air. He states with any weather change or environmental change (ie increase in pollen or rag weed) he has an excacerbation of his COPD. He states he does not wear oxygen at home due to his COPD. He is short on air such that he is 100% disabled now. He did try a breathing treatment on the way to the ER. [facility] although he did not feel he could safely make it to the ER there in [place]. He has no other complaints.) - ROS CONST: no problems EYES/ENT: denies: sore throat, nasal drainage GI/: denies: problems urinating, vomiting, nausea, diarrhea MS/SKIN/LYMPH: none - PAST HX Lung Disease: COPD PE Risk Factors: none Immunizations: referred to PCP Allergies/Adverse Reactions: Allergies Allergy/AdvReac Type Severity Reaction Status Date / Time Sulfa (Sulfonamide AdvReac Unknown Hives Verified 07/05/18 04:39 Antibiotics) Home Medications: Ambulatory Orders Medication Instructions Recorded Aspirin [Adult Low Dose Aspirin EC] 81 mg PO DAILY 04/10/17 Meloxicam [Mobic] 15 mg PO DAILY 04/12/17 Cholecalciferol [Vitamin D-3] 1,000 unit PO DAILY 10/15/17 Glucosamine/MSM/Chondroit Sulf 1 each PO DAILY 10/15/17 [Ysqfxnaukrn-Jjgipszjrya-EKE Tb] Ipratropium [place] 0.2 mg IH DIRECTED 10/15/17 Metformin HCl [Glucophage] 1,000 [place] [address] 10/15/17 Montelukast Sodium [Singulair] 10 mg PO HS 10/15/17 Multivitamin [Tab-A-Jesus] 1 each PO DAILY 10/15/17 Fluticasone Propionate [Flovent 50 mcg PO DAILY 03/31/18 Diskus] Glipizide 5 mg PO DAILY 03/31/18 Ipratropium/Albuterol Sulfate 20 mcg PO PRN 03/31/18 [Combivent Respimat] Budesonide/Formoterol Fumarate 1 puff IH BID 07/05/18 [Symbicort 160-4.5 Mcg Inhaler] Cetirizine HCl [All Day Allergy] 10 mg PO DAILY 07/05/18 - SOCIAL HX Smoking History: quit greater than 1 year (2 years ago ) Alcohol Use: none Drug Use: none - FAMILY HX Family History: none - VITAL SIGNS Vital Signs: Vital Signs Temp Pulse Resp BP Pulse Ox 97.3 F L 96 H 24 162/89 96 07/05/18 04:00 07/05/18 04:00 07/05/18 04:00 07/05/18 04:00 07/05/18 04:00 - REVIEWED ASSESSMENTS Nursing Assessment Reviewed: Yes Vitals Reviewed: Yes Progress - Progress Progress: 0510: decreased wheeze after treatment. He is feeling slightly improved on shortness of breath DG 0545: Shortness of breath improved. He is requesting to go home DG 0550: Pt does not wish to wait for the remainder of labs DG ED Results Lab/Radiology - Lab Results Lab Results: Lab Results 07/05/18 07/05/18 04:27 04:27 WBC 5.70 K/ul K/ul (4.00-12.00) RBC 5.06 M/ul M/ul (3.90-5.20) Hgb 14.8 g/dL g/dL (12.0-18.0) Hct 43.2 % % (37.0-53.0) MCV 85.3 fl fl (80.0-100.0) MCH 29.4 pg pg (28.0-34.0) MCHC 34.4 g/dL g/dL (30.0-36.0) RDW 13.2 % % (11.3-14.3) Plt Count 219 K/mm3 K/mm3 (130-400) Neut % (Auto) 61.1 % % (39.0-79.0) Lymph % (Auto) 23.8 % % (16.0-50.0) [place] % (Auto) 5.7 % % (0.0-11.0) Eos % (Auto) 7.0 % H % (0.0-6.8) Baso % (Auto) 0.5 (0.0-1.5) Neut # (Auto) 3.5 # k/uL # k/uL (1.4-7.7) Lymph # (Auto) 1.4 # k/uL # k/uL (0.6-4.0) [place] # (Auto) 0.3 # k/uL # k/uL (0.0-0.9) Eos # (Auto) 0.4 # k/uL # k/uL (0.0-0.6) Baso # (Auto) 0.0 # k/uL # k/uL (0.0-0.5) Reactive Lymphs % 1.8 % % (0.0-5.0) Reactive Lymphs # 0.1 # k/uL # k/uL (0.0-0.8) Sodium 133 mmol/L L mmol/L (136-145) Potassium 4.0 mmol/L mmol/L (3.5-5.1) Chloride 94 mmol/L L mmol/L (98-107) Carbon Dioxide 28 mmol/L mmol/L (22-30) BUN 18 mg/dL mg/dL (9-20) Creatinine 1.10 mg/dL mg/dL (0.66-1.25) Estimated Creat Clear 105 Est GFR ( Amer) > 60 (60 - ) Est GFR (Non-Af Amer) > 60 (60 - ) Glucose 164 mg/dL H mg/dL (74-106) Calcium 8.6 mg/dL mg/dL (8.4-10.2) Total Bilirubin < 0.2 mg/dL L mg/dL (0.2-1.3) AST 30 U/L U/L (15-46) ALT 35 U/L U/L (13-69) Alkaline Phosphatase 122 U/L U/L (38-126) Total Protein 7.4 g/dL g/dL (6.3-8.2) Albumin 4.1 g/dL g/dL (3.5-5.0) - Radiology Radiology Impressions: Chest two views History: Acute shortness of breath. History of COPD Findings: Cervical fusion hardware is partially visualized. The lungs are mildly hyperinflated without pneumonia, pleural effusion, or pneumothorax. Heart size and pulmonary vascularity are normal. Impression: Mild hyperinflation. Electronically signed on Jul 05, 2018 5:09:38 AM CDT by: Dl Romero - Orders Orders: ED Orders Category Date Time Status Place IV Lock 1T Care 07/05/18 04:04 Active CHEST 2VIEW [RAD] Stat Exams 07/05/18 Taken BNP [NT-proBNP] Stat Lab 07/05/18 Ordered CBC/PLATELET/DIFF Stat Lab 07/05/18 04:27 Completed CMP [CMP] Stat Lab 07/05/18 04:27 Completed TROPONIN I (cTnI) Stat Lab 07/05/18 Ordered Budesonide [Pulmicort] Med 07/05/18 09:00 Ordered 0.5 mg NEB BID Ipratropium/Albuterol Sulfate [Duoneb] Med 07/05/18 04:04 Discontinued 3 ml NEB NOW ONE methylPREDNISolone SOD SUCC [Solu-MEDROL] Med 07/05/18 04:54 Discontinued 125 mg IVP NOW ONE Oxygen Daily Oxygen 07/05/18 04:45 Ordered EKG WITH COMPARISON Stat Ther 07/05/18 Ordered Dyspnea Physical Exam - EXAM General Appearance: no acute distress EENT: eye inspection normal, ENT inspection normal, pharynx normal Neck: nml inspection Respiratory: speaks full sentences, respiratory distress (mild with talking or movement ), wheezes, rhonchi (decrease on wheezing with first breathing treatment ) CVS: reg. rate & rhythm, no murmur Abdomen: non-tender, no organomegaly, no distention Skin: color nml, no rash Extremities: non-tender, normal range of motion, no evidence of injury, no edema Neuro/Psych: oriented x3, CN's nml as tested, motor nml, mood/affect nml Discharge Clincal Impression: Acute exacerbation of COPD with asthma Referrals: Isidra Martinez MD [Primary Care Provider] - 2 Days Comments: 1. Prednisone taper 20 mg x 4 days. 10 mg x 4 days and then 5 mg x 7 days 2. Continue home meds 3. Notify PCP if any symptoms continue 4. Return to ER for any concerns Condition: Stable Disposition: 01 HOME, SELF-CARE Decision to Admit: NO Date of Decison to Admit: 07/05/18 Decision Time: 05:52
[2018-07-05 06:08] VITALS: BP 119/67
[2018-07-05] MEDS ORDERED: BUDESONIDE 0.5MG/2ML AMPUL.NEB NEB SCH (09:00)
== END 2018-07-05 06:00 | disposition home or self-care (01) ==
LOC: ED 03:59
DX: J44.1 Chronic obstructive pulmonary disease with (acute) exacerbation (principal); J45.901 Unspecified asthma with (acute) exacerbation
CPT/HCPCS: 71046; 80053; 83880; 84484; 85025; J2930; J7626; 94640; 96374; 99284; S1016